=== PATIENT | female | born 1985 | race African-American/Black ===

== ENCOUNTER → 2017-07-13 | Outpatient (CLI) | payer OTHER ==
[~2017-07-13] MED LIST: ACET50TA PO; COLA100C5 PO; DIBU10OI TOP; MOTR200T44 PO; PRENTAB9 PO
--- NOTE | 2017-07-13 13:38 | REP ---
Clinical: Dating and viability. Technique: Transabdominal first trimester obstetrical ultrasound with color Doppler evaluation. Findings: Single live early intrauterine is appreciated. Gestational sac with pole identified. [place]-rump length of 5.2 cm corresponds to 11 weeks 6 days gestational age with estimated date of delivery 01/26/2018 . heart rate equals 152 beats per minute. No gross abnormalities are identified. Impression: Single live early intrauterine at 11 week 6 days gestational age. Complete anatomical assessment should be performed and 19-20 weeks. Signed by Zeeshan Osuna MD 07/13/2017 01:30 P
== END ==
LOC: M RAD 12:55
PROVIDERS: ATTEND Student in an Organized Health Care Education/Training Program
DX: O36.80X0 Pregnancy with inconclusive fetal viability, not applicable or unspecified (principal); Z36 Encounter for antenatal screening of mother; Z3A.11 11 weeks gestation of pregnancy

== ENCOUNTER 2018-01-23 14:42 | Outpatient (CLI) | payer OTHER | END 2018-01-23 15:52 | disposition home or self-care (01) | LOC: M LDO 14:42 | DX: O36.8130 Decreased fetal movements, third trimester, not applicable or unspecified (principal); O26.893 Other specified pregnancy related conditions, third trimester; Z3A.39 39 weeks gestation of pregnancy; N89.8 Other specified noninflammatory disorders of vagina | CPT/HCPCS: 59025 ==

== ENCOUNTER 2018-01-28 09:37 | Inpatient (IN) | payer OTHER ==
[2018-01-28] MEDS ORDERED: ACETAMINOPHEN 500 MG TAB PO (14:00)
[2018-01-28] MEDS ORDERED: FENTANYL 2MCG/ML ROPIVACAINE 0.2% IN 0.9% NACL 200ML IVBAG As Ordered (14:06)
[2018-01-28 14:18] LABS: HEMATOCRIT 39.7 % (36.0-47.0); HEMOGLOBIN 12.8 g/dl (12.0-15.5); MEAN CORPUSCULAR HEMOGLOBIN 26.2 pg (27.0-33.0); MEAN CORPUSCULAR HGB CONC 32.2 g/dl (32.0-36.5); MEAN CORPUSCULAR VOLUME 81.4 fl (80.0-96.0); PLATELET COUNT, AUTOMATED 238 10^3/uL (150-450); RED BLOOD COUNT 4.88 10^6/uL (4.00-5.40); RED CELL DISTRIBUTION WIDTH 14.5 % (11.5-14.5); WHITE BLOOD COUNT 10.4 10^3/uL (4.0-10.0)
[2018-01-28 14:51] LABS: AMPHETAMINES URINE REFLEX NEGATIVE (NEGATIVE); BARBITURATES URINE REFLEX NEGATIVE (NEGATIVE); BENZODIAZEPINES URINE REFLEX NEGATIVE (NEGATIVE); CANNABINOIDS URINE REFLEX NEGATIVE (NEGATIVE); COCAINE METABOLITE URINE REFLE NEGATIVE (NEGATIVE); METHADONE URINE REFLEX NEGATIVE (NEGATIVE); OPIATES URINE REFLEX NEGATIVE (NEGATIVE); PHENCYCLIDINE URINE REFLEX NEGATIVE (NEGATIVE)
[2018-01-28] MEDS: LACTATED RINGER'S 1000 ML IV (15:13)
[2018-01-28] MEDS: LR 1,000 ML IV ×2 (15:13→18:07)
[2018-01-28] MEDS ORDERED: ONDANSETRON 4MG/2ML VIAL (J2405) IV ×2 (15:30→20:00)
[2018-01-28] MEDS ORDERED: FENTANYL/ROPIVACAINE/NACL BAG 200 ML EPIDURAL (15:30)
[2018-01-28] MEDS ORDERED: NALOXONE INJ 0.4 MG/1 ML VIAL (J2310) IV (15:30)
[2018-01-28] MEDS ORDERED: ePHEDrine SULFATE 25 MG/5 ML(5MG/ML) SYRINGE IV (15:30)
[2018-01-28] MEDS ORDERED: diphenhydrAMINE INJ 50MG/ML VIAL (J1200) IV (15:30)
[2018-01-28] MEDS ORDERED: EPIDURAL/PCA KEYS XX (15:30)
[2018-01-28] MEDS ORDERED: LACTATED RINGER'S 1000 ML IV (15:30)
[2018-01-28] MEDS ORDERED: EPIDURAL COMMENT XX (15:30)
[2018-01-28] MEDS ORDERED: REFRIGERATOR IV KEYS XX (15:30)
[2018-01-28] MEDS ORDERED: OXYTOCIN 30 UNITS IN 0.9% NaCl 500ML IV BAG (J2590) As Ordered (16:57)
[2018-01-28] MEDS: OXYTOCIN DRIP 30 UNITS in APPROPRIATE DILUENT 1 EA IV (19:20)
[2018-01-28] MEDS ORDERED: PROMETHAZINE 25 MG TAB PO (20:00)
[2018-01-28] MEDS ORDERED: DIBUCAINE 1% OINTMENT 30GM TOP (20:00)
[2018-01-28] MEDS ORDERED: METHYLERGONOVINE MALEATE 0.2 MG/ML VIAL (J2210) IM (20:00)
[2018-01-28] MEDS ORDERED: MEASLES,MUMPS,RUBELLA VACCINE INJ (MMR-II) (90707) SC (20:00)
[2018-01-29] MEDS: DOCUSATE SODIUM 100 MG CAP PO ×3 (01:22→21:16)
[2018-01-29] MEDS: IBUPROFEN 800 MG TAB PO ×3 (02:41→21:16)
[2018-01-29] MEDS: ACETAMINOPHEN 500 MG TAB PO ×2 (08:23→18:24)
[2018-01-29] MEDS: PRENATAL VITAMINS CHEWABLE TABLET PO (08:23)
[2018-01-29 11:57] LABS: FETAL SCREEN PROF. 1 1
[2018-01-29] MEDS: RHOGAM 300 MCG (1500 IU) INJ (J2790) IM (12:16)
[2018-01-30] MEDS: IBUPROFEN 800 MG TAB PO (05:38)
[2018-01-30] MEDS: PRENATAL VITAMINS CHEWABLE TABLET PO (09:19)
[2018-01-30] MEDS: DOCUSATE SODIUM 100 MG CAP PO (09:19)
[2018-01-30] MEDS: ACETAMINOPHEN 500 MG TAB PO (09:22)
== END 2018-01-30 13:15 | disposition home or self-care (01) | DRG 775 ==
LOC: M LDO 09:37 → M LDI 13:41 → M OBS 23:35
PROVIDERS: Obstetrics & Gynecology
PROC: 10E0XZZ Delivery of Products of Conception, External Approach (ICD-10-PCS; principal; 2018-01-28)
PROC: 0HQ9XZZ Repair Perineum Skin, External Approach (ICD-10-PCS; 2018-01-28)
DX: O48.0 Post-term pregnancy (principal); Z3A.40 40 weeks gestation of pregnancy; O70.0 First degree perineal laceration during delivery; Z37.0 Single live birth